=== PATIENT | male | born 1965 | race Caucasian/White ===

== ENCOUNTER 2017-12-25 08:08 | Day surgery (SDC) | payer BC ==
[~2017-12-25] VITALS: Ht 190.5 cm; Wt 126.5 kg
[~2017-12-25 08:08] MED LIST: BACITRACIN OINT 500U/GM, 15 GM ONE; EPINEPHRINE 1 MG/ML, 1ML ONE; EPINEPHRINE TOPICAL SOLN 1 MG/ML, 30ML ONE; FLUORESCEIN OPHTHALMIC 1 MG STRIP ONE; IBUP200C5; LIDOCAINE 1%, 20ML ONE; OXYMETAZOLINE NASAL SPRAY 0.05%, 15ML ONE; [UNRECOGNIZED DRUG - REMARK]
[2017-12-25] MEDS ORDERED: LACTATED RINGERS 1,000 ML IV SCH (08:53)
[2017-12-25] MEDS ORDERED: LISI-170 PO (08:57)
[2017-12-25] MEDS ORDERED: MULT-767 PO (08:57)
[2017-12-25] MEDS ORDERED: THIA100T27 PO (08:57)
[2017-12-25] MEDS ORDERED: FOLI-17 PO (08:57)
[2017-12-25 09:00] VITALS: BP 163/113
[2017-12-25] MEDS ORDERED: OxyconTIN ER 20 MG TAB.ER PO SCH (09:00)
[2017-12-25] MEDS ORDERED: GABAPENTIN 300 MG CAPSULE PO SCH (09:00)
[2017-12-25] MEDS ORDERED: SCOPOLAMINE PATCH, 1.5MG PATCH.TD72 TD ONE ×2 (09:00→09:14)
[2017-12-25] MEDS ORDERED: ACETAMINOPHEN 500 MG TABLET PO ONE (09:00)
[2017-12-25] MEDS ORDERED: GABAPENTIN 300 MG CAPSULE ONE (09:14)
[2017-12-25] MEDS ORDERED: ACETAMINOPHEN 500 MG TABLET ONE (09:15)
[2017-12-25] MEDS ORDERED: OxyconTIN ER 20 MG TAB.ER ONE (09:15)
[2017-12-25 09:30] VITALS: BP 180/99
[2017-12-25] MEDS ORDERED: GABAPENTIN 300 MG CAPSULE PO ONE (09:30)
[2017-12-25 09:41] LABS: ALANINE AMINOTRANSFERASE 56 U/L (12-78); ALBUMIN 3.9 g/dL (3.4-5.0); ANION GAP 9 mmol/L (5-15); CALCIUM 8.4 mg/dL (8.5-10.1); CHLORIDE 107 mmol/L (98-107); CREATININE 0.92 mg/dL (0.7-1.3)
[2017-12-25 09:43] LABS: ALKALINE PHOSPHATASE 68 U/L (45-117); BILIRUBIN,TOTAL 0.4 mg/dL (0.2-1.0); TOTAL PROTEIN 7.5 g/dL (6.4-8.2)
[2017-12-25] MEDS ORDERED: MIDAZOLAM 1 MG/ML, 2ML ONE (10:11)
[2017-12-25] MEDS ORDERED: FENTANYL PF 100 MCG/2ML ONE ×3 (10:11→11:47)
[2017-12-25] MEDS ORDERED: MIDAZOLAM 1 MG/ML, 5ML ONE (10:25)
[2017-12-25] MEDS ORDERED: CEFAZOLIN 1,000 MG ONE (10:25)
[2017-12-25] MEDS ORDERED: DEXAMETHASONE 4 MG/ML, 1ML ONE (10:25)
[2017-12-25] MEDS ORDERED: ROCURONIUM 10MG/ML,5ML ONE (10:25)
[2017-12-25] MEDS ORDERED: KETOROLAC 30 MG/1 ML ONE (10:25)
[2017-12-25] MEDS ORDERED: ONDANSETRON 2MG/ML, 2ML ONE (10:25)
[2017-12-25] MEDS ORDERED: SUCCINYLCHOLINE 20 MG/ML, 10ML ONE (10:25)
[2017-12-25] MEDS ORDERED: PROPOFOL 10 MG/ML, 20ML ONE (10:25)
[2017-12-25] MEDS ORDERED: OXYcodone 5 MG/5 ML ORAL.SOL UDC PO PRN (11:00)
[2017-12-25] MEDS ORDERED: LABETALOL 5MG/ML, 20ML IV PRN (11:00)
[2017-12-25] MEDS ORDERED: ALBUTEROL SULFATE 2.5 MG/3 ML NPPB PRN (11:00)
[2017-12-25] MEDS ORDERED: hydrALAzine 20 MG/ML, 1ML IV PRN (11:00)
[2017-12-25] MEDS ORDERED: MEPERIDINE/PF 25MG/0.5ML IVPush PRN (11:00)
[2017-12-25] MEDS ORDERED: MIDAZOLAM 1 MG/ML, 2ML IV PRN (11:00)
[2017-12-25] MEDS ORDERED: HYDROmorphone 1 MG/ML, 1ML IV PRN (11:00)
[2017-12-25] MEDS ORDERED: PROMETHAZINE 12.5 MG SUPP PR PRN (11:00)
[2017-12-25] MEDS ORDERED: FENTANYL PF 100 MCG/2ML IV PRN (11:00)
[2017-12-25] MEDS ORDERED: ONDANSETRON 2MG/ML, 2ML IVPush PRN (11:00)
[2017-12-25] MEDS ORDERED: BALANCED SALT OPHTH IRRIG SOLN 18ML ONE (12:47)
[2017-12-25] MEDS ORDERED: BALANCED SALT OPHTH IRRIG SOLN 18ML IO ONE (12:49)
== END 2017-12-25 16:15 ==
LOC: OUT 08:08
PROVIDERS: ATTEND Otolaryngology
DX: D14.0 Benign neoplasm of middle ear, nasal cavity and accessory sinuses (principal); I10 Essential (primary) hypertension; E66.9 Obesity, unspecified; Z68.35 Body mass index [BMI] 35.0-35.9, adult
CPT/HCPCS: 31256; 36415; 61782; 68815; 80053; 88304; 88311; J0171; J0330; J0690; J1100; J1885; J2250; J2405; J2704; J3010; J3490